=== PATIENT | female | born 1990 | race Caucasian/White ===

== ENCOUNTER 2021-12-19 17:02 | Emergency (ER) | payer OTHER, SELFPAY ==
--- NOTE | ~2021-12-19 | CT_ITS ---
EXAMINATION: CT cervical spine wo con DATE: 12/19/2021 17:57 INDICATION: Neck injury. Neck pain. TECHNIQUE: Computed tomography (CT) of the cervical spine was performed without intravenous contrast. Automated exposure control and iterative reconstruction technique were employed. The dose-length pro duct was 366.54 mGy-cm. COMPARISON: None FINDINGS: There is kyphosis of cervical spine. There is 6 degrees dextrocurvature of cervical spine. Vertebral body heights and intervertebral disc heights are normal. At C7-T1, there is mild right and moderate left facet joint osteoarthritis. At C7-T1, there is mild left neural foraminal stenosis. No central canal stenosis. IMPRESSION: 1. No fracture. 2. Mild cervical spondylosis. Reviewed, dictated and finalized at location A.
--- NOTE | ~2021-12-19 | CT_ITS ---
EXAMINATION: CT brain wo con DATE: 12/19/2021 17:57 INDICATION: Head injury. TECHNIQUE: Computed tomography (CT) of the head was performed without intravenous contrast. The mA wa s adjusted according to patient size. Iterative reconstruction technique was employed. The dose-lengt h product was 605.33 mGy-cm. COMPARISON: None FINDINGS: There is no intracranial hemorrhage, acute infarction, or abnormal intracranial mass lesion . The ventricles are normal in size. The paranasal sinuses are clear. The orbits are normal. The mas toid air cells are normal. IMPRESSION: 1. Normal brain. Reviewed, dictated and finalized at location A. IMPRESSION: 1. Normal brain.
[2021-12-19 17:16] VITALS: BP 124/94; PULSE 96; RESP 16; TEMP 36.8; O2SAT 99
--- NOTE | 2021-12-19 17:37 | PC.NURSE ---
Care assumed of pt at this time.
--- NOTE | 2021-12-19 17:37 | ED.HEATRA ---
HPI - Head Injury General Chief complaint: Head Injury Stated complaint: concerned for concussion Time Seen by Provider: 12/19/21 17:30 Source: patient Mode of arrival: ambulatory Limitations: no limitations History of Present Illness HPI Narrative: This is a 31-year-old female that presents to the emergency department for head injury sustained just prior to arrival. Reports she was sitting on the floor at work. The child had climbed up onto a jungle gym and jumped off of it and landed on her head. Reports since she has had headache and neck pain. Headache is associated with photophobia, nausea and vomiting. Denies vision changes, numbness, or weakness. Related Data Allergies Allergy/AdvReac Type Severity Reaction Status Date / Time acetaminophen Allergy Unknown Nausea and Verified 06/15/19 15:45 Vomiting propoxyphene Allergy Unknown Nausea and Verified 06/15/19 15:45 Vomiting Review of Systems Review of Systems: CONSTITUTIONAL: Denies fever EYES: Denies visual changes GASTROINTESTINAL: Reports nausea, vomiting MUSCULOSKELETAL: Reports joint pain, and myalgia. NEUROLOGIC: Reports headache. Denies numbness, or weakness. All systems reviewed & are unremarkable except as noted in HPI and below PMFSH Past Medical History Medical History (Updated 12/19/21 @ 18:42 by Monika Moseley PA-C) History of anxiety History of depression Social History Social History (Updated 12/19/21 @ 17:39 by Monika Moseley PA-C) Substance use: never Exam Narrative: GENERAL: Well-appearing, well-nourished, and in no acute distress. HEAD: Normocephalic, atraumatic. EYES: PERRLA and EOMI. ENT: Nares clear, no rhinorrhea or epistaxis. Mucous membranes moist. Oropharynx without tonsillar hypertrophy exudate or other lesions. Bilateral TMs pearly arenas non-bulging NECK: Supple. No adenopathy or masses. C-collar in place CHEST: Clear to auscultation. No respiratory distress. No wheezes rales or rhonchi HEART: Regular rate and rhythm. No murmur heard. Normal peripheral pulses. EXTREMITIES: Normal range of motion. No edema. Strength equal in bilateral upper and lower extremities (5/5) SKIN: Warm, dry, no rash. NEURO: No focal deficits. Alert and oriented x3. Cranial nerves II through XII grossly intact PSYCH: Normal mood and affect Course Vital Signs Vital signs: Vital Signs Temperature 98.2 F 12/19/21 17:16 Pulse Rate 96 12/19/21 17:16 Respiratory Rate 16 12/19/21 17:16 Blood Pressure 124/94 H 12/19/21 17:16 Pulse Oximetry 99 12/19/21 17:16 Temperature 98.2 F 12/19/21 17:16 Pulse Rate 96 12/19/21 17:16 Respiratory Rate 16 12/19/21 17:16 Blood Pressure 124/94 H 12/19/21 17:16 Pulse Oximetry 99 12/19/21 17:16 MDM - Head Injury MDM Narrative Medical decision making narrative: Patient presents to the emergency department after head injury with headache and neck pain. Patient is neurologically intact. CT scan of the brain and cervical spine without acute abnormalities. Patient was instructed on care of concussion. She is to follow-up with her primary care doctor. She was given warnings to return to the ER Imaging Data Radiologist's impression: ITS Impressions Head CT 12/19/21 17:57 IMPRESSION: 1. Normal brain. Cervical Spine CT 12/19/21 17:58 IMPRESSION: 1. No fracture. 2. Mild cervical spondylosis. Critical Care Time Critical Care Time Critical Care Time: No Discharge Plan Discharge Clinical Impression: Closed head injury Qualifiers: Encounter type: initial encounter Qualified Code(s): S09.90XA - Unspecified injury of head, initial encounter Patient Disposition: Home, Self-Care Condition: Stable Instructions: Concussion (ED), Head Injury (ED) Additional Instructions: Return to the emergency department if you experience fever, stiff neck, vision changes, intractable vomiting, sudden onset numbness or weakness, or any other symptoms that
[2021-12-19] MEDS: ONDANSETRON HCL ODT 4 MG TABLET PO (17:40)
[2021-12-19] MEDS: KETOROLAC (*BKC) 60 MG/2 ML VIAL IM (18:33)
[2021-12-19 18:53] VITALS: BP 123/78; PULSE 78; RESP 18; O2SAT 98
== END 2021-12-19 19:07 | disposition home or self-care (01) ==
LOC: ANHED 18:57
PROVIDERS: Emergency Provider Emergency Medicine; PCP Nurse Practitioner Family
DX: S09.90XA Unspecified injury of head, initial encounter (principal); W51.XXXA Accidental striking against or bumped into by another person, initial encounter; M47.812 Spondylosis without myelopathy or radiculopathy, cervical region
CPT/HCPCS: 70450; 72125; 96372; 99284; A9270; J1885; L0140

== ENCOUNTER → 2023-07-31 09:43 | Outpatient (CLI) | payer MEDICAID, SELFPAY ==
--- NOTE | ~2023-07-31 | US_ITS ---
EXAMINATION: US OB /maternal detail DATE: 07/31/2023 10:23 INDICATION: anatomic survey. TECHNIQUE: Real-time ultrasound of the pelvis was performed. COMPARISON: None. FINDINGS: There is a single living fetus in breech presentation. The placenta is posterior, 5.6 cm from the ce rvix. The cervical length is 2.8 cm on transabdominal images, which is normal. heart rate is 15 2 beats per minute (bpm). The amniotic fluid volume is subjectively normal. The following biometric data were obtained: Biparietal diameter (BPD): 5.8 cm; head circumference (HC): 21.7 cm; abdominal circumference (AC): 18 .4 cm; femur length (FL): 3.9 cm. These measurements are discordant with low FL/BPD. Estimated weight is 562 g +/- 84 g, which correlates with the 13th percentile when 11/21/23 is us ed as estimated date of delivery. As single measurements, these parameters are each equal to the following estimated gestational ages: BPD: 23 weeks 6 days. HC: 23 weeks 5 days. AC: 23 weeks 1 days. FL: 22 weeks 5 days. estimated gestational age based solely on measurements from this exam is 23 weeks 3 days +/- 1 weeks 4 days. The cerebral ventricles, cerebellum, cisterna magna, lip, and visualized portions of the spine are no rmal. The heart is normal. The diaphragm, stomach, kidneys, and bladder are normal. There are two umb ilical arteries to yield a 3-vessel cord. The cord insertion is normal. IMPRESSION: 1. Single living fetus in breech presentation. 2. Estimated weight is 562 g +/- 84 g, which correlates with the 13th percentile when 11/21/23 i s used as estimated date of delivery. 3. Normal anatomic survey. 4. Low FL/BPD ratio. Reviewed, dictated and finalized at location A. ING CLERK IMPRESSION: 1. Single living fetus in breech presentation. 2. Estimated weight is 562 g +/- 84 g, which correlates with the 13th pe rcentile when 11/21/23 is used as estimated date of delivery. 3. Normal anatomic survey. 4. Low FL/BPD ratio.
== END ==
PROVIDERS: PCP Obstetrics & Gynecology; Visit Provider Obstetrics & Gynecology
DX: Z36.9 Encounter for antenatal screening, unspecified (principal)
CPT/HCPCS: 76805

== ENCOUNTER → 2023-09-04 07:27 | Outpatient (CLI) | payer MEDICAID, SELFPAY ==
--- NOTE | ~2023-09-04 | US_ITS ---
EXAMINATION: US OB follow up DATE: 09/04/2023 08:07 INDICATION: Covid. Evaluate growth. TECHNIQUE: Real-time transabdominal obstetric ultrasound. FINDINGS: Comparison ultrasound dated 07/31/2023 There is a single living fetus in vertex presentation. The placenta is posterior without placenta pr evia. Placental margin to the cervix is 8.2 cm. Cervical length 3.3 cm. cardiac activity and movement is noted with a heart rate of 148 beats per minute. T he amniotic fluid volume is subjectively normal. The following biometric data were obtained: BPD: 74mm corresponds to gestational age 29 weeks 5 days. Head circumference: 270mm corresponds to gestational age 29 weeks 3 days. Abdominal circumference: 238mm corresponds to gestational age 28 weeks 1 days. Femur length: 54mm corresponds to gestational age 28 weeks 3 days. Estimated weight: 1231grams +/- 84grams, 23.7%. IMPRESSION: 1. Single living intrauterine in vertex presentation with an estimated gestational age of 28 weeks 6 days. Appropriate interval growth. Reviewed, dictated and finalized at location A. L ASSEMBLY AND PACKING SUPERVISOR IMPRESSION: 1. Single living intrauterine in vertex presentation with an estimat ed gestational age of 28 weeks 6 days. Appropriate interval growth.
== END ==
PROVIDERS: PCP Obstetrics & Gynecology; Visit Provider Obstetrics & Gynecology
DX: O98.519 Other viral diseases complicating pregnancy, unspecified trimester (principal); O99.210 Obesity complicating pregnancy, unspecified trimester; U07.1 COVID-19
CPT/HCPCS: 76816

== ENCOUNTER 2023-10-11 10:56 | Outpatient (RCR) | payer OTHER, SELFPAY ==
[2023-10-11 11:40] VITALS: BP 124/76; PULSE 119
== END 2024-01-09 23:59 | disposition home or self-care (01) ==
LOC: ANHOBOP 10:56
PROVIDERS: PCP Obstetrics & Gynecology; Visit Provider Obstetrics & Gynecology
DX: O36.8130 Decreased fetal movements, third trimester, not applicable or unspecified (principal); Z3A.34 34 weeks gestation of pregnancy
CPT/HCPCS: 59025

== ENCOUNTER 2023-10-13 16:20 | Outpatient (CLI) | payer OTHER, SELFPAY ==
--- NOTE | ~2023-10-13 | US_ITS ---
EXAMINATION: US OB follow up DATE: 10/13/2023 17:27 INDICATION: Obesity TECHNIQUE: Real-time transabdominal obstetric ultrasound. FINDINGS: Comparison to multiple prior studies sequentially, with oldest reviewed study dated 2022. There is a single living fetus in vertex presentation. The placenta is posterior without placenta pr evia. cardiac activity and movement is noted with a heart rate of 139 beats per minute. T he amniotic fluid volume is subjectively normal. The following biometric data were obtained: BPD: 92mm corresponds to gestational age 37 weeks 0 days. Head circumference: 334mm corresponds to gestational age 38 weeks 2 days. Abdominal circumference: 294mm corresponds to gestational age 33 weeks 3 days. Femur length: 62mm corresponds to gestational age 32 weeks 0 days. Estimated weight: 2284grams +/- 342grams, 27.6% by Hadlock method.] IMPRESSION: 1. Single living intrauterine in vertex presentation with an estimated gestational age of 34 weeks 0 days by inititial ultrasound. Appropriate interval growth. 2. Normal placenta. Reviewed, dictated and finalized at location L. OGY LABORATORY ASSISTANT IMPRESSION: 1. Single living intrauterine in vertex presentation with an estimat ed gestational age of 34 weeks 0 days by inititial ultrasound. Appropriate int erval growth. 2. Normal placenta.
== END 2023-10-13 16:21 | disposition home or self-care (01) ==
PROVIDERS: PCP Obstetrics & Gynecology; Visit Provider Obstetrics & Gynecology
DX: O99.210 Obesity complicating pregnancy, unspecified trimester (principal); O98.519 Other viral diseases complicating pregnancy, unspecified trimester; U07.1 COVID-19; Z3A.34 34 weeks gestation of pregnancy
CPT/HCPCS: 76816